=== PATIENT | female | born 1985 | race Caucasian/White ===

== ENCOUNTER 2017-08-12 10:01 | Inpatient (IN) | payer MEDICARE ==
[~2017-08-12] VITALS: Ht 157.5 cm; Wt 58.0 kg
[~2017-08-12 10:01] MED LIST: CEFD300 PO; CHLO25 PO; CLIN150 PO; ESCI10 PO; FOLI1 PO; HYDACE5325 PO; HYDR1TAB94 PO; LORA.5 PO; MULVITMIND PO; NICO21TP; OMEP20ER PO; ONDA4 PO; OXYC5 PO; PANT40 PO; POTPHO PO; PROC10 PO; PROM25 PO; Phospha 250 Ne250 MG PO; RANI150 PO; RXHYD5325 PO; SPIR25 PO; SUCR1 PO; THIA100 PO; TOPI25; TRAZ50 PO
[2017-08-12] MEDS ORDERED: VENL150ER PO (10:15)
[2017-08-12 10:29] LABS: Source, Urine Clean Catch
[2017-08-12 10:32] LABS: BASOPHILS ABSOLUTE AUTO 0.06 K/mm3 (0.00-0.23); BASOPHILS PERCENT AUTO 1 % (0-2); EOSINOPHILS ABSOLUTE AUTO 0.07 K/mm3 (0.00-0.68); EOSINOPHILS PERCENT AUTO 1 % (0-6); Hematocrit 41.9 % (33.0-51.0); Hemoglobin 14.5 g/dL (11.5-16.0); IMMATURE GRAN ABSOLUTE AUTO 0.04 K/mm3 (0.00-0.10); IMMATURE GRAN PERCENT AUTO 0 % (0-1); LYMPHOCYTES PERCENT AUTO 15 % (21-46); MONOCYTES ABSOLUTE AUTO 1.03 K/mm3 (0.16-1.47); MONOCYTES PERCENT AUTO 8 % (4-13); Mean Corpuscular HGB 35.5 pg (26.0-34.0); Mean Corpuscular HGB Conc 34.6 g/dL (31.5-36.5); Mean Corpuscular Volume 103 fL (80-100); NEUTROPHILS ABSOLUTE AUTO 9.71 K/mm3 (1.96-9.15); NEUTROPHILS PERCENT AUTO 76 % (41-73); Platelet Count 194 K/mm3 (150-400); RDW Coefficient Variation 13.3 % (11.7-14.2); RDW Standard Deviation 50.3 fL (35.1-46.3); Red Blood Cell Count 4.08 M/mm3 (3.80-5.20); White Blood Cell Count 12.81 K/mm3 (4.00-11.30)
[2017-08-12 10:33] LABS: Blood, Urine 2+ (Neg); Glucose Qualitative, Urine Neg (Neg); Ketones, Urine 2+ (Neg); Leukocyte Esterase, Urine 1+ (Neg); Nitrite, Urine Pos (Neg); Protein, Urine 2+ (Neg); Specific Gravity, Urine 1.025 (1.003-1.022); Urobilinogen, Urine 2+ (Normal)
[2017-08-12 10:49] LABS: Appearance, Urine Clear (Clear); Bilirubin, Urine 1+ (Neg); Color, Urine Amber (P-Yellow)
[2017-08-12 10:50] LABS: Mucus Mod (0-Heavy)
[2017-08-12 10:51] LABS: Bacteria Few /hpf; Squamous Epithelial Cells Few /hpf (Few)
[2017-08-12 10:51] LABS: Alanine Aminotransfer (ALT/SGP 28 U/L (12-78); Albumin, Blood 3.9 g/dL (3.4-5.0); Albumin/Globulin Ratio 0.7 (0.8-1.8); Alk Phos 88 U/L (50-136); Anion Gap 14 mmol/L (6-16); Aspartate Aminotrans (AST/SGOT 44 U/L (12-37); Blood Urea Nitrogen 12 mg/dL (8-24); Bun/Creatinine Ratio 15.2 (12.0-20.0); CO2, Blood 26 mmol/L (21-32); Calcium, Blood 9.2 mg/dL (8.5-10.1); Chloride, Blood 90 mmol/L (98-108); Creatinine, Blood 0.79 mg/dL (0.40-1.00); Globulin, Blood 5.6 g/dL (2.2-4.0); Glomerular Filtration Rate >60 (60-); Glucose, Blood 140 mg/dL (70-99); Potassium, Blood 2.7 mmol/L (3.5-5.5); Sodium, Blood 130 mmol/L (136-145); Total Protein, Blood 9.5 g/dL (6.4-8.2)
[2017-08-12 18:17] LABS: Potassium, Blood 3.1 mmol/L (3.5-5.5)
[2017-08-13 06:02] LABS: BASOPHILS ABSOLUTE AUTO 0.02 K/mm3 (0.00-0.23); BASOPHILS PERCENT AUTO 0 % (0-2); EOSINOPHILS ABSOLUTE AUTO 0.05 K/mm3 (0.00-0.68); EOSINOPHILS PERCENT AUTO 1 % (0-6); Hematocrit 35.1 % (33.0-51.0); Hemoglobin 11.9 g/dL (11.5-16.0); IMMATURE GRAN ABSOLUTE AUTO 0.04 K/mm3 (0.00-0.10); IMMATURE GRAN PERCENT AUTO 1 % (0-1); LYMPHOCYTES ABSOLUTE AUTO 1.07 K/mm3 (0.84-5.20); LYMPHOCYTES PERCENT AUTO 13 % (21-46); MONOCYTES ABSOLUTE AUTO 0.63 K/mm3 (0.16-1.47); MONOCYTES PERCENT AUTO 8 % (4-13); Mean Corpuscular HGB 35.1 pg (26.0-34.0); Mean Corpuscular HGB Conc 33.9 g/dL (31.5-36.5); Mean Corpuscular Volume 104 fL (80-100); Mean Platelet Volume 9.7 fL (9.1-12.4); NEUTROPHILS ABSOLUTE AUTO 6.16 K/mm3 (1.96-9.15); NEUTROPHILS PERCENT AUTO 77 % (41-73); Platelet Count 151 K/mm3 (150-400); RDW Coefficient Variation 13.2 % (11.7-14.2); RDW Standard Deviation 50.4 fL (35.1-46.3); Red Blood Cell Count 3.39 M/mm3 (3.80-5.20); White Blood Cell Count 7.97 K/mm3 (4.00-11.30)
[2017-08-13 06:21] LABS: Alanine Aminotransfer (ALT/SGP 16 U/L (12-78); Albumin, Blood 2.8 g/dL (3.4-5.0); Albumin/Globulin Ratio 0.7 (0.8-1.8); Alk Phos 58 U/L (50-136); Anion Gap 9 mmol/L (6-16); Aspartate Aminotrans (AST/SGOT 23 U/L (12-37); Bilirubin, Total 0.6 mg/dL (0.1-1.0); Blood Urea Nitrogen 3 mg/dL (8-24); Bun/Creatinine Ratio 5.3 (12.0-20.0); CO2, Blood 24 mmol/L (21-32); Calcium, Blood 7.7 mg/dL (8.5-10.1); Chloride, Blood 102 mmol/L (98-108); Creatinine, Blood 0.56 mg/dL (0.40-1.00); Globulin, Blood 3.8 g/dL (2.2-4.0); Glomerular Filtration Rate >60 (60-); Glucose, Blood 126 mg/dL (70-99); Sodium, Blood 135 mmol/L (136-145); Total Protein, Blood 6.6 g/dL (6.4-8.2)
[2017-08-14 05:02] LABS: BASOPHILS ABSOLUTE AUTO 0.02 K/mm3 (0.00-0.23); BASOPHILS PERCENT AUTO 0 % (0-2); EOSINOPHILS ABSOLUTE AUTO 0.22 K/mm3 (0.00-0.68); EOSINOPHILS PERCENT AUTO 3 % (0-6); Hemoglobin 10.5 g/dL (11.5-16.0); IMMATURE GRAN ABSOLUTE AUTO 0.03 K/mm3 (0.00-0.10); IMMATURE GRAN PERCENT AUTO 0 % (0-1); LYMPHOCYTES PERCENT AUTO 31 % (21-46); MONOCYTES PERCENT AUTO 10 % (4-13); Mean Corpuscular HGB 35.7 pg (26.0-34.0); Mean Corpuscular HGB Conc 33.9 g/dL (31.5-36.5); Mean Corpuscular Volume 105 fL (80-100); Mean Platelet Volume 10.6 fL (9.1-12.4); NEUTROPHILS ABSOLUTE AUTO 3.81 K/mm3 (1.96-9.15); NEUTROPHILS PERCENT AUTO 55 % (41-73); Platelet Count 119 K/mm3 (150-400); RDW Coefficient Variation 13.2 % (11.7-14.2); Red Blood Cell Count 2.94 M/mm3 (3.80-5.20); White Blood Cell Count 6.88 K/mm3 (4.00-11.30)
[2017-08-14 05:15] LABS: Albumin, Blood 2.4 g/dL (3.4-5.0); Anion Gap 7 mmol/L (6-16); Blood Urea Nitrogen 1 mg/dL (8-24); Bun/Creatinine Ratio 1.8 (12.0-20.0); CO2, Blood 25 mmol/L (21-32); Calcium, Blood 7.6 mg/dL (8.5-10.1); Chloride, Blood 107 mmol/L (98-108); Creatinine, Blood 0.56 mg/dL (0.40-1.00); Glomerular Filtration Rate >60 (60-); Glucose, Blood 85 mg/dL (70-99); Magnesium, Blood 2.1 mg/dL (1.6-2.4); Phosphorus, Blood 2.4 mg/dL (2.5-4.9); Potassium, Blood 3.3 mmol/L (3.5-5.5); Sodium, Blood 139 mmol/L (136-145)
[2017-08-15 05:49] LABS: Albumin, Blood 2.3 g/dL (3.4-5.0); Anion Gap 8 mmol/L (6-16); Blood Urea Nitrogen 2 mg/dL (8-24); Bun/Creatinine Ratio 3.5 (12.0-20.0); CO2, Blood 24 mmol/L (21-32); Calcium, Blood 7.9 mg/dL (8.5-10.1); Chloride, Blood 107 mmol/L (98-108); Creatinine, Blood 0.57 mg/dL (0.40-1.00); Glomerular Filtration Rate >60 (60-); Glucose, Blood 93 mg/dL (70-99); Phosphorus, Blood 3.5 mg/dL (2.5-4.9); Potassium, Blood 3.3 mmol/L (3.5-5.5); Sodium, Blood 139 mmol/L (136-145)
[2017-08-16 05:40] LABS: Albumin, Blood 2.6 g/dL (3.4-5.0); Anion Gap 11 mmol/L (6-16); Blood Urea Nitrogen 2 mg/dL (8-24); Bun/Creatinine Ratio 3.6 (12.0-20.0); CO2, Blood 22 mmol/L (21-32); Calcium, Blood 8.5 mg/dL (8.5-10.1); Chloride, Blood 106 mmol/L (98-108); Creatinine, Blood 0.56 mg/dL (0.40-1.00); Glomerular Filtration Rate >60 (60-); Glucose, Blood 76 mg/dL (70-99); Sodium, Blood 139 mmol/L (136-145)
[2017-08-17 09:16] LABS: Albumin, Blood 3.1 g/dL (3.4-5.0); Anion Gap 9 mmol/L (6-16); Blood Urea Nitrogen 3 mg/dL (8-24); Bun/Creatinine Ratio 4.9 (12.0-20.0); CO2, Blood 29 mmol/L (21-32); Calcium, Blood 8.9 mg/dL (8.5-10.1); Chloride, Blood 100 mmol/L (98-108); Creatinine, Blood 0.62 mg/dL (0.40-1.00); Glomerular Filtration Rate >60 (60-); Glucose, Blood 80 mg/dL (70-99); Phosphorus, Blood 4.1 mg/dL (2.5-4.9); Potassium, Blood 3.6 mmol/L (3.5-5.5); Sodium, Blood 138 mmol/L (136-145)
[2017-08-18] MEDS ORDERED: Percocet 5-3251 EACH PO (08:54)
== END 2017-08-18 12:10 | disposition home or self-care (01) | DRG 439 ==
LOC: ER 10:01 → MEDS 11:48 → ENPENDDIS 08-18 10:19 → MEDS 08-18 12:10
PROVIDERS: Emergency Medicine; Internal Medicine
DX: K85.20 Alcohol induced acute pancreatitis without necrosis or infection (principal); E87.1 Hypo-osmolality and hyponatremia; K70.9 Alcoholic liver disease, unspecified; E83.39 Other disorders of phosphorus metabolism; E87.6 Hypokalemia; F17.210 Nicotine dependence, cigarettes, uncomplicated; F10.20 Alcohol dependence, uncomplicated; R74.0 Nonspecific elevation of levels of transaminase and lactic acid dehydrogenase [LDH]; E86.0 Dehydration
CPT/HCPCS: 36415; 74176; 80051; 80053; 80069; 81001; 81025; 83690; 83735; 85025; 87086; 96361; 96365; 96375; 99285; C1751; C9113; J2001; J2060; J2405; J2550; J3010; J3411; J3475; J3480; J7030; J7042; J7050; J7060

== ENCOUNTER → 2021-10-15 | Outpatient (CLI) | payer MEDICARE, OTHER ==
[~2021-10-15] MED LIST changes: +BUSPIRONE HCL30 M1 PO; +CLON.5 PO; +CYMBALTA20 M2 PO; +LAMOTRIGINE25 M4 PO; +Percocet 5-3251 EACH PO; +SEROQUEL200 MG PO; +VENL150ER PO
[2021-10-15 17:48] LABS: Adenovirus F 40/41 Not Detected (NOT DETECT); Astrovirus Not Detected (NOT DETECT); Campylobacter Sp Not Detected (NOT DETECT); Cryptosporidium Not Detected (NOT DETECT); Cyclospora Cayetanensis Not Detected (NOT DETECT); E. Coli O157 Not Detected (NOT DETECT); Entamoeba Histolytica Not Detected (NOT DETECT); Enteroaggregative E. coli-EAEC Not Detected (NOT DETECT); Enteropathogenic E. coli-EPEC Not Detected (NOT DETECT); Enterotoxigenic E. coli-ETEC Not Detected (NOT DETECT); Giardia Lamblia Not Detected (NOT DETECT); Norovirus GI/GII Not Detected (NOT DETECT); Plesiomonas Shigelloides Not Detected (NOT DETECT); Rotavirus A Not Detected (NOT DETECT); Salmonella Sp Not Detected (NOT DETECT); Sapovirus Not Detected (NOT DETECT); Shiga Toxin-prod E. coli-STEC Not Detected (NOT DETECT); Shigella/Enteroin E. coli-EIEC Not Detected (NOT DETECT); Vibrio Cholerae Not Detected (NOT DETECT); Vibrio Sp Not Detected (NOT DETECT); Yersinia Enterocolitica Not Detected (NOT DETECT)
== END | disposition home or self-care (01) ==
LOC: LAB 12:14 → LAB SHORT 12:14
PROVIDERS: Nurse Practitioner Family
DX: R19.7 Diarrhea, unspecified (principal)
CPT/HCPCS: 87507

== ENCOUNTER → 2022-10-20 | Outpatient (CLI) | payer MEDICARE, OTHER ==
[2022-10-20 15:17] LABS: BASOPHILS ABSOLUTE AUTO 0.06 K/mm3 (0.00-0.23); BASOPHILS PERCENT AUTO 1 % (0-2); EOSINOPHILS ABSOLUTE AUTO 0.06 K/mm3 (0.00-0.68); EOSINOPHILS PERCENT AUTO 1 % (0-6); Hematocrit 42.8 % (33.0-51.0); IMMATURE GRAN ABSOLUTE AUTO 0.02 K/mm3 (0.00-0.10); IMMATURE GRAN PERCENT AUTO 0 % (0-1); LYMPHOCYTES ABSOLUTE AUTO 2.57 K/mm3 (0.84-5.20); LYMPHOCYTES PERCENT AUTO 37 % (21-46); MONOCYTES PERCENT AUTO 10 % (4-13); Mean Corpuscular HGB 33.3 pg (26.0-34.0); Mean Corpuscular HGB Conc 32.7 g/dL (31.5-36.5); Mean Corpuscular Volume 102 fL (80-100); Mean Platelet Volume 12.3 fL (9.1-12.4); NEUTROPHILS ABSOLUTE AUTO 3.62 K/mm3 (1.96-9.15); NEUTROPHILS PERCENT AUTO 51 % (41-73); Platelet Count 208 K/mm3 (150-400); RDW Coefficient Variation 14.6 % (11.7-14.2); RDW Standard Deviation 54.9 fL (35.1-46.3); Red Blood Cell Count 4.21 M/mm3 (3.80-5.20); White Blood Cell Count 7.03 K/mm3 (4.00-11.30)
== END | disposition home or self-care (01) ==
LOC: LAB SHORT 13:43 → LAB 13:43
PROVIDERS: Registered Nurse
DX: Z13.29 Encounter for screening for other suspected endocrine disorder (principal); Z13.6 Encounter for screening for cardiovascular disorders; I10 Essential (primary) hypertension; F51.01 Primary insomnia
CPT/HCPCS: 36415; 85025

== ENCOUNTER → 2022-12-13 | Outpatient (CLI) | payer MEDICARE, OTHER ==
[2022-12-15 15:12] LABS: HPV 16 Negative (Negative); HPV 18 Negative (Negative); HPV OTHER HR TYPES Negative (Negative)
== END | disposition home or self-care (01) ==
LOC: LAB SHORT 17:50 → LAB 17:50
PROVIDERS: Registered Nurse
DX: Z01.419 Encounter for gynecological examination (general) (routine) without abnormal findings (principal)
CPT/HCPCS: 87624; G0145

== ENCOUNTER 2023-01-28 06:43 | Inpatient (IN) | payer MEDICARE, OTHER ==
[~2023-01-28] VITALS: Ht 157.5 cm; Wt 62.3 kg
[2023-01-28 07:39] LABS: BASOPHILS ABSOLUTE AUTO 0.07 K/mm3 (0.00-0.23); BASOPHILS PERCENT AUTO 1 % (0-2); EOSINOPHILS ABSOLUTE AUTO 0.05 K/mm3 (0.00-0.68); EOSINOPHILS PERCENT AUTO 0 % (0-6); Hematocrit 46.5 % (33.0-51.0); Hemoglobin 16.4 g/dL (11.5-16.0); IMMATURE GRAN ABSOLUTE AUTO 0.05 K/mm3 (0.00-0.10); IMMATURE GRAN PERCENT AUTO 0 % (0-1); LYMPHOCYTES ABSOLUTE AUTO 2.48 K/mm3 (0.84-5.20); LYMPHOCYTES PERCENT AUTO 19 % (21-46); MONOCYTES ABSOLUTE AUTO 0.44 K/mm3 (0.16-1.47); MONOCYTES PERCENT AUTO 3 % (4-13); Mean Corpuscular HGB 36.9 pg (26.0-34.0); Mean Corpuscular HGB Conc 35.3 g/dL (31.5-36.5); Mean Corpuscular Volume 105 fL (80-100); Mean Platelet Volume 9.4 fL (9.1-12.4); NEUTROPHILS ABSOLUTE AUTO 10.11 K/mm3 (1.96-9.15); NEUTROPHILS PERCENT AUTO 77 % (41-73); Platelet Count 310 K/mm3 (150-400); RDW Coefficient Variation 13.8 % (11.7-14.2); RDW Standard Deviation 53.9 fL (35.1-46.3); Red Blood Cell Count 4.45 M/mm3 (3.80-5.20)
[2023-01-28 08:07] LABS: Acetaminophen, Random 6.5 ug/mL (10.0-30.0); Alanine Aminotransfer (ALT/SGP 108 U/L (12-78); Albumin, Blood 4.1 g/dL (3.4-5.0); Alk Phos 135 U/L (50-136); Anion Gap 15 mmol/L (6-16); Aspartate Aminotrans (AST/SGOT 174 U/L (12-37); Bilirubin, Total 0.4 mg/dL (0.1-1.0); Blood Urea Nitrogen 12 mg/dL (8-24); Bun/Creatinine Ratio 15.1 (12.0-20.0); CO2, Blood 17 mmol/L (21-32); Calcium, Blood 8.8 mg/dL (8.5-10.1); Chloride, Blood 111 mmol/L (98-108); Ethanol (Alcohol), Blood, Med 278 mg/dL; Globulin, Blood 4.3 g/dL (2.2-4.0); Glomerular Filtration Rate 98 (60-); Glucose, Blood 157 mg/dL (70-99); Potassium, Blood 3.6 mmol/L (3.5-5.5); Salicylate <1.7 mg/dL (2.8-20.0); Sodium, Blood 143 mmol/L (136-145); Total Protein, Blood 8.4 g/dL (6.4-8.2)
[2023-01-28 08:23] LABS: International Normalized Ratio 1.09; Prothrombin Time Results 11.4 Sec (9.7-11.5)
[2023-01-28 11:08] LABS: Influenza A, PCR NEGATIVE (NEGATIVE); Influenza B, PCR NEGATIVE (NEGATIVE); Resp Syncytial Virus, PCR NEGATIVE (NEGATIVE); SARS-Cov-2 (COVID-19) PCR, MMC NEGATIVE (NEGATIVE)
[2023-01-28 13:16] LABS: U Amphetamine Screen Not Detected; U Barbituate Screen DETECTED; U Benzodiazapine Screen DETECTED; U Buprenorphine Screen Not Detected; U Cannabinoids Screen Not Detected; U Cocaine Screen Not Detected; U Methadone Screen Not Detected; U Methamphetamine Screen Not Detected; U Opiates Screen Not Detected; U Oxycodone Screen Not Detected; U Phencyclidine Screen Not Detected; U Propoxyphene Screen Not Detected
[2023-01-28 16:27] VITALS: BP 143/114
[2023-01-28] MEDS ORDERED: AMIT75 PO (16:29)
[2023-01-28] MEDS ORDERED: DULOXETINE HCL60 M1 PO (16:29)
[2023-01-28] MEDS ORDERED: KLONOPIN0.5 M9 PO (16:30)
--- NOTE | 2023-01-28 19:25 | NUR ---
ADMISSION/SHIFT SUMMARY: PT IS NEW ADMIT, ARRIVES FROM ER APPROX 1630. PT ARRIVES A&Ox4, ANSWERING QUESTIONS APPROPRIATELY AND COOPERATIVE W/CARE, ADMITS TO FEELING TREMULOUS AND ANXIOUS, MEDICATED FOR C/O HEADACHE. PT CONTINUES TO DENY SI, 1:[address], STATES LAST DRINK WAS APPROX 0600 THIS AM, CIWA MONITORED PER PROTOCOL. PT DENIES SOB, LS CLEAR, O2 SATS >92% ON RA. TELEMETRY MONITORING IN PLACE, SIN TACH ON MONITOR W/RATE 110-120s, PT DENIES CP. PT REPORTS IMPROVEMENT TO NAUSEA. ASSESSMENT FOR IGNITABLE SOURCES HAS BEEN NEGATIVE. PT CURRENTLY RESTING IN BED W/CALL LIGHT IN REACH. REPORT GIVEN TO NOC SHIFT RN.
[2023-01-28 20:25] VITALS: BP 137/109
[2023-01-29 02:43] VITALS: BP 131/95
--- NOTE | 2023-01-29 04:42 | NUR ---
SHIFT SUMMARY PATIENT DENIES PAIN, NAUSEA, AND SHORTNESS OF BREATH. PATIENT A&O X4. PATIENT INDEPENDENT IN ROOM. PATIENT MEDICATED X1 FOR CIWA OF 10. OTHER CIWA SCORES THROUGHOUT NIGHT UNDER 8. PATIENT ANXIOUS AND TREMULOUS. PER REPORT, PATIENT HAD BEEN HALLUCINATING, NO HALLUCINATIONS THIS SHIFT. PATIENT LOW SI. PATIENT SLEPT ON AND OFF THROUGHOUT SHIFT. FIRE SAFETY AND IGNITION RISK COMPLETED. PATIENT IS VERY PLEASANT AND COOPERATIVE WITH CARE.
[2023-01-29 05:44] LABS: BASOPHILS ABSOLUTE AUTO 0.04 K/mm3 (0.00-0.23); BASOPHILS PERCENT AUTO 1 % (0-2); EOSINOPHILS ABSOLUTE AUTO 0.06 K/mm3 (0.00-0.68); EOSINOPHILS PERCENT AUTO 1 % (0-6); Hematocrit 35.4 % (33.0-51.0); Hemoglobin 12.7 g/dL (11.5-16.0); IMMATURE GRAN ABSOLUTE AUTO 0.01 K/mm3 (0.00-0.10); IMMATURE GRAN PERCENT AUTO 0 % (0-1); LYMPHOCYTES ABSOLUTE AUTO 2.79 K/mm3 (0.84-5.20); LYMPHOCYTES PERCENT AUTO 57 % (21-46); MONOCYTES ABSOLUTE AUTO 0.36 K/mm3 (0.16-1.47); MONOCYTES PERCENT AUTO 7 % (4-13); Mean Corpuscular HGB Conc 35.9 g/dL (31.5-36.5); Mean Corpuscular Volume 103 fL (80-100); Mean Platelet Volume 9.5 fL (9.1-12.4); NEUTROPHILS ABSOLUTE AUTO 1.67 K/mm3 (1.96-9.15); NEUTROPHILS PERCENT AUTO 34 % (41-73); Platelet Count 172 K/mm3 (150-400); RDW Coefficient Variation 13.1 % (11.7-14.2); RDW Standard Deviation 49.9 fL (35.1-46.3); Red Blood Cell Count 3.43 M/mm3 (3.80-5.20); White Blood Cell Count 4.93 K/mm3 (4.00-11.30)
[2023-01-29 06:13] LABS: Albumin/Globulin Ratio 0.9 (0.8-1.8); Bilirubin, Total 1.3 mg/dL (0.1-1.0); Bun/Creatinine Ratio 7.3 (12.0-20.0); Calcium, Blood 8.7 mg/dL (8.5-10.1); Creatinine, Blood 0.82 mg/dL (0.40-1.00); Globulin, Blood 3.3 g/dL (2.2-4.0); Potassium, Blood 3.3 mmol/L (3.5-5.5)
[2023-01-29 06:14] LABS: Total Protein, Blood 6.3 g/dL (6.4-8.2)
[2023-01-29 07:27] VITALS: BP 124/90
--- NOTE | 2023-01-29 10:53 | NUR ---
TELE CALLED AND REPORTED PT IS SUSTAINING HR IN THE 140'S TO 150'S. PT IS ST AT THIS TIME. PT DENIES SOB, CP AT THIS TIME. ASYMPTOMATIC. DR. VILLALBA NOTIFIED VIA TELEPHONE OF ST.
[2023-01-29 15:27] VITALS: BP 116/86
--- NOTE | 2023-01-29 18:46 | NUR ---
SHIFT SUMMARY: PT A/O X 4, IND IN ROOM, PLEASANT AND COOPERATIVE WITH CARE. CURRENT CIWA AT 1730 WAS 10. PT REPORTS EXPERIENCING TACTILE DISTURBANCE WITH MILD ITCHING, MILD AGITATION, ANXIETY, PT HAS TREMORS/TWITCHING. PT IS CLAMMY AND DIAPHORETIC. PT ALSO HAS REPORTED INTERMITTENT MID EPIGASTRIC PAIN AND NAUSEA THROUGHOUT THE DAY. LORAZEPAM AND ZOFRAN GIVEN AND HAS HELPED WITH THIS PAIN. PT HAS HAD TO HAVE LORAZEPAM Q [address] PEMBERTON AND REPORTED CONCERNS AND HE GAVE ORDER TO INCREASE LORAZEPAM TO 1-2 MG IV Z 2 HOURS, BUT BE CAREFUL NOT TO OVERSEDATE PT. PT HAS HAD NO SIGNS OF SEDATION THROUGHOUT THE DAY AND HAS BEEN AWAKE EVERYTIME ROUNDED ON. PT IS ALSO ABLE TO MAKE NEEDS KNOWN AT THIS TIME, USES CALL LIGHT APPROPRIATELY. PT HAD HER MOM AND KIDS VISIT TODAY AND APPEARED TO BE IN [employer] WHILE THEY WERE VISITING SMILING WITH INTERACTION WITH THEM. PT DID REPORT THIS MORNING HER MOM IS HER SUPPORT PERSON IF SHE WAS TO GO HOME.
[2023-01-29 19:33] VITALS: BP 121/86
[2023-01-30] VITALS (44 sets, daily range): BP systolic 81–149; BP diastolic 54–119
--- NOTE | 2023-01-30 02:03 | NUR ---
PATIENT WITH INCREASING CIWAA SCORE OF 17 THIS EVENING WITH HEADACHE NAUSEA, BURNING SENSATION AND INCREASING ANXIETY. CALL PLACED TO DR MORALES AT 0024 AND LIBRIUM ORDERD WELL INCREASE IN FREQUENCY OF ATIVAN. PATIENT GIVEN THESE MEDICATIONS AT 0040 AND 0055. PATIENT STATES SHE VOMITED UP HER MEDICATIONS AT 0110. CIWAA AT 18 AND BACK TO 17. DR KIRKPATRICK NOTIFIED AND ORDERS RECIEVED AT 0141 TO GIVE ADDITIONAL LIBRIUM 50MG NOW AND ATIVAN 2MG IV NOW, REEVALUATE PATIENT IN 30-40 MINUTES AND TRANSFER IF CIWAA NOT BELOW 15.
--- NOTE | 2023-01-30 04:44 | NUR ---
PATIENT ARRIVED TO ICU 11 VIA BED FROM [facility]. PATIENT ABLE TO AMBULATE TO ICU BED FROM OUTSIDE OF ROOM, SLIGHTLY UNSTEADY WHEN AMBULATING. PATIENTS IV TO RIGHT WRIST POSITIONAL FLUSHING EASILY. PATIENT RESTLESS AND ASKING IF SHE CAN HAVE FOOD AND BLANKET BROUGHT IN FROM HOME, AND REQUESTING USE OF HER PHONE TO CALL A FRIEND PRECEDEX DRIP STARTED AND LIBRIUM PO GIVEN.
--- NOTE | 2023-01-30 04:50 | NUR ---
SHIFT SUMMARY PATIENT WITH CIWAAS CLIMBING THROUGH NIGHT UP TO 18, DR KIRKPATRICK NOTIFIED, LIBRIUM AND ATIVAN GIVEN ORDERED, PATIENT CONTINUING TO NEED ATIVAN AT LEAST EVERY HOUR WITH CIWAAS ONLY COMING DOWN TO 14/15. PATIENT WITH CHEST TIGHTNESS AND EKG SHOWING BUNDLE BRANCH BLOCK. MD NOTIFIED DR KIRKPATRICK ORDERED TRANSFER OF PATIENT TO ICU WITH PLAN FOR PRECEDEX. RN TO RN REPORT GIVEN TO MOSHE IN ICU AT 0426. PATIENT TRANSFERRED AT 0434 WITH DARRYL MITCHELL AND ARSEN VALENZUELA
[2023-01-30 06:49] LABS: BASOPHILS ABSOLUTE AUTO 0.04 K/mm3 (0.00-0.23); BASOPHILS PERCENT AUTO 1 % (0-2); EOSINOPHILS ABSOLUTE AUTO 0.14 K/mm3 (0.00-0.68); EOSINOPHILS PERCENT AUTO 2 % (0-6); Hematocrit 34.4 % (33.0-51.0); Hemoglobin 12.6 g/dL (11.5-16.0); IMMATURE GRAN ABSOLUTE AUTO 0.02 K/mm3 (0.00-0.10); IMMATURE GRAN PERCENT AUTO 0 % (0-1); LYMPHOCYTES ABSOLUTE AUTO 2.68 K/mm3 (0.84-5.20); LYMPHOCYTES PERCENT AUTO 45 % (21-46); MONOCYTES ABSOLUTE AUTO 0.51 K/mm3 (0.16-1.47); MONOCYTES PERCENT AUTO 9 % (4-13); Mean Corpuscular HGB 37.1 pg (26.0-34.0); Mean Corpuscular HGB Conc 36.6 g/dL (31.5-36.5); Mean Corpuscular Volume 101 fL (80-100); Mean Platelet Volume 9.5 fL (9.1-12.4); NEUTROPHILS ABSOLUTE AUTO 2.59 K/mm3 (1.96-9.15); NEUTROPHILS PERCENT AUTO 43 % (41-73); Platelet Count 166 K/mm3 (150-400); RDW Coefficient Variation 12.8 % (11.7-14.2); RDW Standard Deviation 47.8 fL (35.1-46.3); White Blood Cell Count 5.98 K/mm3 (4.00-11.30)
--- NOTE | 2023-01-30 07:00 | NUR ---
Pt belongings: Pt belongings bag contains coat, tshirt, slippers, cell phone with charging cable. No other personal belongings.
--- NOTE | 2023-01-30 07:00 | NUR ---
SUMMARY PATIENT TRANSFER TO ICU DUE TO INCREASING CIWA. PRECEDEX STARTED AND LIBRIUM GIVEN ON ARRIVAL TO ICU. DIFFICULTY STARTING IV, AND IV TO RIGHT WRIST PAINFUL AND LEAKING. PRECEDEX OFF AT THIS TIME DUE TO NO IV ACCESS. PATIENT CONTINUES TO BE RESTLESS. VERBALIZED THAT SHE DIDN'T LIKE THE BED ALARM ON, EXPLAINED THAT DUE TO MULTIPLE LINES AND CORDS, AND SLIGHT UNSTEADY ON FEET SHE IS NEEDING ASSISTANCE WITH GETTING UP DUE TO FALL RISK. STITCHES TO RIGHT NECK INTACT AND RED WITH SMALL AMT OF SEROSANG DRAINAGE, WOUND CLEANSED WITH STERILE WATER AND COVERED WITH NONADHERENT DRESSING AND SECURED WITH DRESSING TAPE.
[2023-01-30 07:07] LABS: Calcium, Blood 8.5 mg/dL (8.5-10.1); Creatinine, Blood 0.75 mg/dL (0.40-1.00); Magnesium, Blood 1.6 mg/dL (1.6-2.4); Potassium, Blood 3.7 mmol/L (3.5-5.5)
--- NOTE | 2023-01-30 09:58 | NUR ---
SHIFT ASSESSMENT ASSUMED CARE OF PT @ 0700, BEDSIDE REPORT RECEIVED FROM MOSHE ANDREWS. PT ALERT TO PERSON, PLACE AND SITUATION WITH MOMENTS OF CONFUSION. VERY RESTLESS, ETOH W/D. CONTINUOUSLY GETTING OUT OF BED AND WALKING, DIFFICULT TO REDIRECT. CONTINUES TO WRAP SELF IN CORDS AND LINES, ONE IV DC'D SECONDARY TO PT ACCIDENTALLY PULLING ON LINES. NEW IV ESTABLISHED, PRECEDEX GTT RESTARTED AND ATIVAN GIVEN FOR INCREASING CIWA. PT CONTINUED TO BE VERY RESTLESS, STATING "I AM GOING HOME". THIS NURSE ATTEMTED MULTIPLE TIMES TO REDIRECT AND EXPLAIN CURRENT SITUATION TO PT. SHE INSISTED ON LEAVING. HOSPITALIST NOTIFIED AND 2 MD HOLD INITIATED FOR SI/ ETOH W/D. PTS RIGHTS READ TO PT AND PT SIGNED. NEW ORDERS FOR PSYCH CONSULT, AWAITING VISIT FROM PSYCHIATRY. THIS NURSE IS 1:1 WITH PATIENT.
[2023-01-30] MEDS ORDERED: HYDPAM50 PO (10:19)
--- NOTE | 2023-01-30 18:50 | NUR ---
SHIFT SUMMARY PT REMAINS A&O WITH MOMENTS OF MILD CONFUSION. DOING MUCH BETTER THAN SHE WAS THIS AM. REMAINS DEPRESSED BUT DENIES ANY SI. PSYCHIATRIST MET WITH PATIENT, DECREASED FROM HIGH SI TO LOW, CHANGES MADE TO MEDICATIONS. REMAINS ON 2MD HOLD CURRENTLY C 1:1 SITTER. PRECEDEX OFF FOR A SHORT WHILE THIS AFTERNOON BUT BACK ON @ 0.5MCG/KG/HR. CIWA REMAIN >8, MEDICATED MULTIPLE TIMES WITH LIBRIUM AND ATIVAN. PT AMBULATES TO BS WITH SBA. TOLERATING PO INTAKE WELL. NO OTHER ACUTE CHANGES.
--- NOTE | 2023-01-30 21:00 | NUR ---
PATIENT RESTING QUIETLY WITH PRECEDEX 0.5 MCG INFUSING. AWAKENS TO SLIGHT STIMULI. CONTINUES TO C/O FEELING IF SHE HAS THINGS CRAWLING ON HER SKIN. FEELING ANXIOUS. DRESSING TO RIGHT NECK CD&I. WOUNDS TO LEFT NECK WITH SCABS IN PLACE AND DRY. PATIENT VERBALIZED NO URGE TO HARM SELF AT THIS TIME. VERBALIZED THAT SHE JUST WANTS TO GO HOME. 1:1 SITTER AT DOOR. MEDICATED WITH LIBRIUM FOR WITHDRAWAL.
[2023-01-31] VITALS (36 sets, daily range): BP systolic 86–122; BP diastolic 64–92
[2023-01-31 04:36] LABS: Bun/Creatinine Ratio 11.7 (12.0-20.0); Calcium, Blood 8.7 mg/dL (8.5-10.1); Creatinine, Blood 0.77 mg/dL (0.40-1.00)
--- NOTE | 2023-01-31 06:12 | NUR ---
SUMMARY PATIENT SLEEPING OFF AND ON T/O NIGHT. PRECEDEX 0.5 INFUSING. AWAKENS TO SLIGHT STIMULI. UP TO BSC WITH MIN ASSIST TO MONITOR LINES. ATIVAN AND LIBRIUM NEEDED FOR CIWA. PATIENT MAIN COMPLAINT IS FEELING IF HER SKIN IS CRAWLING. PATIENT REMOVED DRESSING TO RIGHT NECK. SUTURES CLEANSED WITH STERILE WATER AND COVERED WITH NONADHESIVE DRESSING. 1:1 SITTER AT DOOR.
--- NOTE | 2023-01-31 09:25 | NUR ---
CARE OF PT ASSUMED AT 0700. PT SLEEPING WITH PRECEDEX AT 0.5MCG FOR ETOH W/D. PT DOES AWAKEN TO VOICE BUT VERY DROWSY W SLURRED SPEECH. PRECEDEX DECREASED TO 0.2MCG THEN PLACED ON STANDBY AROUND 0800. PT WOKE ENOUGH TO ANSER QUESTIONS AND EAT BREAKFAST. CIWA 9 FOR SEVERE HEADACHE, MILD TREMOR, AND MILD NAUSEA; AGAIN PT ABLE TO EAT BREAKFAST WITH ISSUES. 1:1 SITTER AT BEDSIDE.
--- NOTE | 2023-01-31 09:37 | NUR ---
DR PEMBERTON IN TO SEE PT. HOLD WILL CONTINUE UNTIL EVALUATED BY DR JAVIER.
--- NOTE | 2023-01-31 11:30 | NUR ---
DR OCHOAUFF IN TO SEE PT. HOLD REMAINS. NOW LOW S.I. RISK; 1:1 SITER REMAINS. PRECEDEX HAS BEEN OFF SINCE 0800, ATIVAN GIVEN NEEDED FOR W/D SYMPTOMS.
--- NOTE | 2023-01-31 13:03 | NUR ---
AMBER 14, ATIVAN 2MG GIVEN. 15 MIN LATER PT USED CALL LIGHT TO STATE SYMTOMS HAD NOT IMPROVED. "I FEEL LIKE IM CRAWLING OUT OF MY SKIN, IM ITCHY EVERYWHERE". ADDITIONAL 2MG ATIVAN GIVEN.
--- NOTE | 2023-01-31 17:40 | NUR ---
PRECEDEX HAS BEEN OFF SINCE 0800. ATIVAN PRN HAS BEEN USED FOR ETOH W/D SYMPTOMS. PT HAS BEEN SLEEPING ON AND OFF T/O SHIFT, MUCH LESS DROWSY OVERALL. CIWA'S LESS THAN 14. PT ABLE TO EAT, TOLERATE FLUIDS, SBA TO TOILET. PT'S MOTHER AND SON VISITED TODAY.
--- NOTE | 2023-01-31 19:00 | NUR ---
ASSUMED CARE CARE WAS ASSUMED OF MADISON AT 1900. REPORT GIVEN BY KANG ANDREWS. PT HAS 1:1 SITTER, PT DENIES SUICIDAL IDEATIONS AT THIS TIME. PT RESTING AT START OF SHIFT, ANXIETY INCREASING UNTIL PT MEDICATED WITH ATIVAN PER EMAR. PT A/O X4, ABLE TO MAKE NEEDS KNOWN. PT ON RA, O2 SATS >95%. PT ON CONTINOUS CARDIAC MONITORING, MONITOR REFLECTING SINUS TACH. SBP 100s, MAP >65. DRESSING TO NECK LACERATION C/D/I. NS TKO INFUSING IN RIGHT PIV. LEFT PIV SL.
[2023-02-01] VITALS (11 sets, daily range): BP systolic 85–115; BP diastolic 63–83
--- NOTE | 2023-02-01 00:54 | NUR ---
DRESSING CHANGED TO LACERATION ON RIGHT SIDE OF NECK. STICHES INTACT, NO DRAINAGE FROM WOUND. PT DOES NOT COMPLAIN OF PAIN AT SITE.
--- NOTE | 2023-02-01 06:25 | NUR ---
SHIFT SUMMARY M[place]ISON REMAINS TO BE A/O X3-4. PT IS ABLE TO MAKE NEEDS KNOWN AND USED CALL LIGHT APPROPRIATELY THROUGHOUT THE SHIFT. AT THE BEGINNING OF THE SHIFT PT WAS COMPLAINING OF ANXIETY, MEDICATED PER EMAR. FOR THE LAST PART OF THE SHIFT PT HAS BEEN SLEEPING. PT REMAINS ON RA, O2 SATS > 95%. PATIENT SUPPORT ASSISTANT REFLECTING SINUS TACH, HR 100s-110S. SBPs 90s-100s. PRECEDEX HAS REMAINED ON SB THIS SHIFT. PT AMBULATED TO BATHROOM WITH SBA THROUGHOUT THE SHIFT. WILL CONTINUE TO MONITOR UNTIL CARE IS TRANSITIONED TO DAY SHIFT.
--- NOTE | 2023-02-01 07:24 | NUR ---
CARE OF PT ASSUMED AT 0700. PT AWAKE SITTING UP IN BED, ORIENTED X3. CALM, SOFT SPOKEN. DENIES S.I., "LOOKING FORWARD TO GOING HOME". PRECEDEX HAS BEEN OFF SINCE YESTERDAY AT 0800. CIWA 2 FOR MILD TREMOR AND MILD ANXIETY.
--- NOTE | 2023-02-01 08:50 | NUR ---
PT OOB TO SHOWER W 1:1/THERMAL CUTTER HAND. RIGHT NECK WOUND COVERED W TEGADERM.
--- NOTE | 2023-02-01 10:34 | NUR ---
DR PEMBERTON IN TO SEE PT. HOLD DROPPED, PAPER WORK COMPLETE. DR PEMBERTON PLANS ON SENDING PT HOME TODAY. DRILLING FIELD PROFESSIONAL AT BEDSIDE TO COMPLETE SAFETY PLAN.
[2023-02-01] MEDS ORDERED: Nicoderm Cq1 EAC1 TOP (11:16)
[2023-02-01] MEDS ORDERED: QUET200 PO (11:16)
--- NOTE | 2023-02-01 12:49 | NUR ---
ORDERS RECEIVED TO DISCHARGE PT HOME. AGAIN HOLD DROPPED, PAPER WORK SENT TO ER BY BALL WORKER. DR JAVIER IN TO SEE PT PRIOR TO DISCHARGE. PRESCRIPTIONS FAXED TO [employer] [facility] IN [place] PER PT REQUEST. HARD COPY RX FOR KLONOPIN GIVEN TO PT; COPY W PT'S MOTHERS SIGNATURE IN CHART. FOLLOW UP APPOINTMENTS MADE WITH ALEIDA SHERIFF TO REMOVE STITCHES AND DR DAVID MAI WITH PSYCHIATRY. PT SENT HOME WITH SAFETY PLAN WHICH WAS SIGNED/ACKNOWLEDGED BY PT'S MOTHER. VERBAL AND WRITTEN DC INFORMATION GIVEN TO PT AND PT'S MOTHER W CLEAR UNDERSTANDING. PT DC'D HOME IN CARE OF HER MOTHER AND IN STABLE CONDITION AT 1205.
== END 2023-02-01 12:08 | disposition home or self-care (01) | DRG 896 ==
LOC: ER 06:43 → MEDS 12:03 → ICUE 12:03 → MEDS 16:19 → ICUE 01-30 04:40
PROVIDERS: Emergency Medicine; ADMIT Internal Medicine
PROC: HZ2ZZZZ Detoxification Services for Substance Abuse Treatment (ICD-10-PCS; principal; 2023-01-28)
PROC: 0HQ4XZZ Repair Neck Skin, External Approach (ICD-10-PCS; 2023-01-28)
DX: F10.229 Alcohol dependence with intoxication, unspecified (principal); G92.8 Other toxic encephalopathy; E87.20 Acidosis, unspecified; Z20.822 Contact with and (suspected) exposure to COVID-19; F10.239 Alcohol dependence with withdrawal, unspecified; R00.0 Tachycardia, unspecified; E78.5 Hyperlipidemia, unspecified; S11.91XA Laceration without foreign body of unspecified part of neck, initial encounter; D75.89 Other specified diseases of blood and blood-forming organs; E87.6 Hypokalemia; E66.9 Obesity, unspecified; F32.A Depression, unspecified; F41.9 Anxiety disorder, unspecified; Y90.8 Blood alcohol level of 240 mg/100 ml or more; X78.1XXA Intentional self-harm by knife, initial encounter; F17.210 Nicotine dependence, cigarettes, uncomplicated; Z79.899 Other long term (current) drug therapy; Z68.25 Body mass index [BMI] 25.0-25.9, adult; Z87.19 Personal history of other diseases of the digestive system
CPT/HCPCS: 0241U; 12001; 12002; 12004; 36415; 80048; 80053; 81025; 83735; 85025; 85610; 93005; 93010; 94760; 96361-59; 96374-59; 96375-59; 96376-59; 99285-25; A9270; G0480; J1650; J2060; J2405; J2560; J2765; J3411; J7030; J7050

== ENCOUNTER 2023-06-25 23:44 | Emergency (ER) | payer MEDICARE, OTHER ==
[~2023-06-25] VITALS: Ht 157.5 cm; Wt 59.0 kg
[~2023-06-25 23:44] MED LIST changes: +AMIT75 PO; +DULOXETINE HCL60 M1 PO; +HYDPAM50 PO; +KLONOPIN0.5 M9 PO; +Nicoderm Cq1 EAC1 TOP; +QUET200 PO
[2023-06-26 05:30] VITALS: BP 94/63
[2023-06-26] MEDS ORDERED: Ibuprofen600 MG PO (05:54)
[2023-06-26] MEDS ORDERED: ACET500 PO (05:54)
[2023-06-26] MEDS ORDERED: LIDO700A20 TOP (05:55)
== END 2023-06-26 06:00 | disposition home or self-care (01) ==
LOC: ER 23:44
DX: S22.32XA Fracture of one rib, left side, initial encounter for closed fracture (principal); S09.90XA Unspecified injury of head, initial encounter; F17.210 Nicotine dependence, cigarettes, uncomplicated; Z79.899 Other long term (current) drug therapy; W10.1XXA Fall (on)(from) sidewalk curb, initial encounter; Y92.480 Sidewalk as the place of occurrence of the external cause
CPT/HCPCS: 71100; 99284-25; A9270